=== PATIENT | female | born 1975 | race Hispanic/Latino ===

== ENCOUNTER 2024-10-18 09:25 | Emergency (ER) | payer BC ==
[~2024-10-18] VITALS: Ht 160 cm; Wt 63.5 kg
[2024-10-18 10:03] LABS: RAPID GROUP A STREP negative (NEGATIVE)
[2024-10-18 10:07] LABS: SARS-CoV-2, RNA, NAAT NEGATIVE SARS CoV-2 (NEGATIVE)
[2024-10-18 10:13] LABS: INFLUENZA TYPE A Negative For Type A (NEGATIVE); INFLUENZA TYPE B Negative For Type B (NEGATIVE)
[2024-10-18 10:20] LABS: APPEARANCE,URINE CLEAR (CLEAR); BILIRUBIN,URINE NEGATIVE (NEGATIVE); COLOR,URINE LIGHT-YELLOW (YELLOW); GLUCOSE, URINE (UA) NEGATIVE (NEGATIVE); KETONES,URINE NEGATIVE (NEGATIVE); LEUKOCYTE ESTERASE ,URINE NEGATIVE Leu/uL (NEGATIVE); NITRATE,URINE NEGATIVE (NEGATIVE); OCCULT BLOOD,URINE NEGATIVE (NEGATIVE); PH,URINE 6.5 (5.0-8.0); PROTEIN,URINE NEGATIVE (NEGATIVE); UROBILINOGEN,URINE 0.2 mg/dL (0.2-1.0)
[2024-10-18 10:22] LABS: ADD UA MICROSCOPIC NO
--- NOTE | 2024-10-18 10:25 | ERN ---
ED Note History of Present Illness Stated Complaint: FEVER Chief Complaint: Fever Time Seen by MD: 09:32 Dictation: Patient is a 48-year-old female who came to the ER complaining of fever, sore throat, chest congestion, ear pain. Patient states that the symptoms started 2 days ago. She had been trying Mucinex without relief of her symptoms. Allergies: Coded Allergies: No Known Allergies (Unverified Allergy, Unknown, 10/18/24) Home Meds Active Scripts Acetaminophen (Tylenol) 500 Mg Tab, 1 TAB PO Q6HPRN PRN for pain or fever for 15 Days, #60 TAB 0 Refills Prov:SATNAM ALEX MD 10/18/24 Albuterol Sulfate (Ventolin Hfa) 90 Mcg Hfa.aer.ad, 2 PUFF IH Q4HPRN PRN for wheezing for 30 Days, #18 GM 0 Refills Prov:SATNAM ALEX MD 10/18/24 Amoxicillin/Potassium Clav (Amox Tr-K Clv 875-125 mg Tab) 875 Mg-125 Mg Tablet, 1 TAB PO BID for 10 Days, #20 TAB 0 Refills Prov:SATNAM ALEX MD 10/18/24 Fluticasone Propionate (Flonase Nasal [place]) 50 Mcg/Actuation [place], 2 SPRAY NS DAILY, #16 GM 0 Refills Prov:SATNAM ALEX MD 10/18/24 Past Medical History Past Medical History: No Pertinent History Surgical History: Other Surgical History Other: PUMA FONTANA Review of System Dictation NEGATIVE EXCEPT PER HPI Constitutional: Reports fever. Eyes: Negative for injury, pain,redness, and discharge ENT: Negative for injury,pain or swelling Cardiovascular: denies chest pain, palpitations, and edema Respiratory: Reports congestion, Abdomen/GI: Negative for abdominal pain, nausea, vomiting, diarrhea, and constipation Back: Negative for injury and pain : Negative for injury, bleeding and discharge MS/Extremity: Negative for injury and deformity Skin: Negative for rash, and discoloration Neuro: Negative for headache, weakness, numbness, tingling, and seizure Psych: Negative for suicide ideation, homicidal ideation, and hallucinations Initial Vital Sign VS Vital Signs Date Time Temp Pulse Resp B/P (MAP) Pulse Ox O2 Delivery O2 Flow Rate FiO2 10/18/24 09:30 98.8 76 20 112/70 99 0 10/18/24 10:15 Room Air* 21 Physical Exam Dictation GENERAL: AWAKE, ALERT, NAD HEAD/FACE: NORMOCEPHALIC, ATRAUMATIC EYES: PERRL, EOMI, VISION AT BASELINE ENT: ORAL CAVITY CLEAR, TMS CLEAR, NO SIGNS OF INFECTION NECK: TRACHEA MIDLINE, SUPPLE, NO NUCHAL RIGIDITY CARDIOVASCULAR: RRR, NORMAL S1/S2, NO MRGS, NO JVD RESPIRATORY: CTAB, NO RESPIRATORY DISTRESS, NO RALES OR WHEEZES ABDOMEN: SOFT , NO TENDER SKIN: WARM, DRY, NORMAL TURGOR, NO RASH MS/EXTREMITY: PULSES EQUAL, NO CYANOSIS, NEUROVASCULAR INTACT, FROM NEURO: COAX4, GCS 15, STRENGTH 5/5, CN 2-12 INTACT, NORMAL CEREBELLAR EXAM, NORMAL GAIT, PSYCH: NORMAL BEHAVIOR, MOOD, AND AFFECT NORMAL Results (Laboratory/Radiology) Laboratory/Radiology Laboratory Tests Test 10/18/24 09:35 10/18/24 09:39 10/18/24 11:26 Influenza Type A Antigen Negative For Type A Influenza Type B Antigen Negative For Type B SARS-CoV-2, RNA, NAAT NEGATIVE SARS CoV-2 Group A Streptococcus Rapid negative (NEGATIVE) Urine Color LIGHT-YELLOW (YELLOW) Urine Appearance CLEAR (CLEAR) Urine pH 6.5 (5.0-8.0) Urine Specific [place] 1.015 (1.001-1.031) Urine Protein NEGATIVE mg/dL (NEGATIVE) Urine Glucose (UA) NEGATIVE mg/dL (NEGATIVE) Urine Ketones NEGATIVE mg/dL (NEGATIVE) Urine Occult Blood NEGATIVE (NEGATIVE) Urine Nitrate NEGATIVE (NEGATIVE) Urine Bilirubin NEGATIVE mg/dL (NEGATIVE) Urine Urobilinogen 0.2 mg/dL (0.2-1.0) Urine Leukocyte Esterase NEGATIVE Nancy/uL White Blood Count 7.5 K/uL (4.8-10.8) Red Blood Count 4.48 MIL/uL (4.00-5.50) Hemoglobin 13.1 g/dL (12.0-16.0) Hematocrit 40.2 % (36-48) Mean Corpuscular Volume 89.7 fL (79-99) Mean Corpuscular Hemoglobin 29.2 pg (27.0-33.0) Mean Corpuscular Hemoglobin Concent 32.6 g/dL (32.0-36.0) Red Cell Distribution Width 13.2 % (11.0-15.5) Platelet Count 201 K/uL (130-400) Mean Platelet Volume 9.8 fL (7.5-10.5) Immature Granulocyte % (Auto) 1.1 % (0-1) H Neutrophils (%) (Auto) 69.0 % (40.0-77.0) Lymphocytes (%) (Auto) 16.0 % (21.0-51.0) L Monocytes (%) (Auto) 12.8 % (3.0-13.0) Eosinophils (%) (Auto) 0.7 % (0.0-8.0) Basophils (%) (Auto) 0.4 % (0.0-5.0) Neutrophils # (Auto) 5.2 K/uL (1.8-7.7) Lymphocytes # (Auto) 1.2 K/uL (1.0-4.8) Monocytes # (Auto) 1.0 K/uL (0.1-1.0) Eosinophils # (Auto) 0.05 K/uL (0.00-0.70) Basophils # (Auto) 0.03 K/uL (0.00-0.20) Absolute Immature Granulocyte (auto 0.08 K/uL (0-1) Nucleated Red Blood Cells 0.0 % (0.0-0.19) ED Course ED Course Orders Procedure Category Date Status Time Urinalysis Profile LAB 10/18/24 Complete 09:35 Covid Rna Naat LAB 10/18/24 Complete 09:35 Influenza Type A & B, LAB 10/18/24 Complete Rapid 09:35 Rapid (Group A Strep) LAB 10/18/24 Complete 09:35 Chest 1vw RAD 10/18/24 Resulted 09:35 Cbc With Differential LAB 10/18/24 Complete 10:48 Ipratropium/Albuterol PHA 10/18/24 Complete Neb (Duoneb) 11:00 Ceftriaxone 1g Vial PHA 10/18/24 Complete (Rocephine 1g Inj) 11:00 Current Medications Medications (Trade) Dose Ordered Sig/Car Route PRN Reason Start Time Stop Time Status Last Admin Dose Admin Albuterol (DUOneb) 1 udvial ONCE ONCE IH 10/18/24 11:00 10/18/24 11:01 DC 10/18/24 11:51 Ceftriaxone Sodium (ROCEphine 1G INJ) 1 gm ONCE ONCE IVPB 10/18/24 11:00 10/18/24 11:01 DC 10/18/24 11:33 Vital Signs Date Time Temp Pulse Resp B/P (MAP) Pulse Ox O2 Delivery O2 Flow Rate FiO2 10/18/24 12:17 68 18 10/18/24 10:15 98.4 76 18 109/64 98 Room Air* 0 21 10/18/24 09:30 98.8 76 20 112/70 99 0 Medical Decision Making [facility] [age] female who presented with a nose congestion, ear pain, chest congestion and sore throat. Upper respiratory infection including viral pneumonia, her ache, sinusitis and virus allergies. Check for influenza, strep, coronavirus Chest x-ray DX & DISP Disposition: Discharge Departure Impression: Primary Impression: Sinusitis Additional Impressions: Congestion of both ears, Congestion of paranasal sinus, Congestion of upper respiratory tract Condition: Stable Scripts Acetaminophen (Tylenol) 500 Mg Tab 1 TAB PO Q6HPRN PRN for pain or fever for 15 Days, #60 TAB 0 Refills Prov: SATNAM ALEX MD 10/18/24 Albuterol Sulfate (Ventolin Hfa) 90 Mcg Hfa.aer.ad 2 PUFF IH Q4HPRN PRN for wheezing for 30 Days, #18 GM 0 Refills Prov: SATNAM ALEX MD 10/18/24 Amoxicillin/Potassium Clav (Amox Tr-K Clv 875-125 mg Tab) 875 Mg-125 Mg Tablet 1 TAB PO BID for 10 Days, #20 TAB 0 Refills Prov: SATNAM ALEX MD 10/18/24 Fluticasone Propionate (Flonase Nasal [place]) 50 Mcg/Actuation [place] 2 SPRAY NS DAILY, #16 GM 0 Refills Prov: SATNAM ALEX MD 10/18/24 Additional Instructions: RETURN TO ER FOR ANY ACUTE OR WORSENING SYMPTOMS. FOLLOW-UP IN 1-2 DAYS WITH PRIMARY PROVIDER FOR RECHECK OF TODAY'S SYMPTOMS. Referrals: SELF,REFERRAL (PCP) SATNAM ALEX MD Oct 18, 2024 10:25
[2024-10-18] MEDS ORDERED: FLUT16H NS (11:08)
[2024-10-18] MEDS ORDERED: AMOX1TAB16 PO (11:08)
[2024-10-18] MEDS ORDERED: ACET-66 PO (11:08)
[2024-10-18] MEDS ORDERED: ALBU18HF7 IH (11:08)
[2024-10-18] MEDS: cefTRIAXone 1G VIAL IVPB ONE (11:33)
[2024-10-18 11:35] LABS: BASOPHILS # (AUTO) 0.03 K/uL (0.00-0.20); BASOPHILS % (AUTO) 0.4 % (0.0-5.0); EOSINOPHILS # (AUTO) 0.05 K/uL (0.00-0.70); EOSINOPHILS % (AUTO) 0.7 % (0.0-8.0); HEMATOCRIT 40.2 % (36-48); IMMATURE GRANULOCYTE ABSOLUTE 0.08 K/uL (0-1); LYMPHOCYTES # (AUTO) 1.2 K/uL (1.0-4.8); MEAN CORPUSCULAR HEMOGLOBIN 29.2 pg (27.0-33.0); MEAN CORPUSCULAR HGB CONC 32.6 g/dL (32.0-36.0); MEAN CORPUSCULAR VOLUME 89.7 fL (79-99); MONOCYTES % (AUTO) 12.8 % (3.0-13.0); NEUTROPHILS # (AUTO) 5.2 K/uL (1.8-7.7); PLATELET COUNT (AUTO) 201 K/uL (130-400); RED BLOOD CELL COUNT(AUTO) 4.48 MIL/uL (4.00-5.50); RED CELL DISTRIBUTION WIDTH 13.2 % (11.0-15.5); WHITE BLOOD COUNT (AUTO) 7.5 K/uL (4.8-10.8)
--- NOTE | 2024-10-18 11:42 | HMCIMG ---
PORTABLE CHEST RADIOGRAPH INDICATION: COUGH COMPARISON: None FINDINGS: Heart size is normal. The pulmonary vascularity and pedro appear normal. No abnormal pulmonary parenchymal opacity or consolidation identified. No significant pleural effusion noted. No pneumothorax detected. IMPRESSION: No radiographic evidence for any acute cardiopulmonary process.
[2024-10-18] MEDS: IpraTROPium/alBUTERol SULFATE 3 ML SOLUTION IH ONE (11:51)
[2024-10-18 12:17] VITALS: PULSE 68; RESP 18
[2024-10-18 13:08] VITALS: BP 112/68; PULSE 70; RESP 20; TEMP 98.9; O2SAT 99
== END 2024-10-18 13:12 | disposition home or self-care (01) ==
LOC: EDH 09:25
DX: J32.9 Chronic sinusitis, unspecified (principal); H83.8X3 Other specified diseases of inner ear, bilateral; J06.9 Acute upper respiratory infection, unspecified; Z20.822 Contact with and (suspected) exposure to COVID-19
CPT/HCPCS: 99284; 96374; 71045; 87635; 85025; 87880; 87804 ×2; 81003; 36415; 94640; J0696